=== PATIENT | male | born 1990 ===

== ENCOUNTER 2017-11-18 12:38 | Emergency (ER) | payer BC, OTHER ==
[2017-11-18 13:35] VITALS: RESP 16; O2SAT 98
--- NOTE | 2017-11-18 14:09 | ED PDOC ---
History of Present Illness History of Present Illness: 27 yo male, no PMH, presents to ED with C/o sore throat and cough since yesterday, denies fever. Of note:Pt in ED with his childrenw ho are to be seen for the same HPI: Influenza Time Seen by Provider: 11/18/17 13:26 Chief Complaint: Cough, Cold, Congestion History Per: Patient Past Medical History Reviewed: Nursing Documentation, Vital Signs Vital Signs: Last Vital Signs Temp 97 F L 11/18/17 13:32 Pulse 95 H 11/18/17 13:32 Resp 16 11/18/17 13:32 BP 124/63 11/18/17 13:32 Pulse Ox 98 11/18/17 13:32 - Medical History PMH: No Chronic Diseases - Surgical History Surgical History: No Surg Hx - Family History Family History: States: No Known Family Hx - Living Arrangements Living Arrangements: With Family - Social History Current smoker - smoking cessation education provided: No Alcohol: Social Drugs: Denies - Home Medications Home Medications: Ambulatory Orders Medication Instructions Recorded Ibuprofen [Motrin] 600 mg PO TID PRN #30 tab 05/04/13 Loratadine [Claritin] 10 mg PO DAILY #20 tab 05/04/13 Mometasone Furoate [Nasonex] 2 drop NS DAILY #0 ml 05/04/13 Guaifenesin/Pseudoephedrne HCl 1 tab PO DAILY PRN #30 ter 11/18/17 [Mucinex D 600 mg-60 mg] Promethazine HCl/Codeine 5 ml PO HS #80 ml 11/18/17 [Prometh-Codein 6.25-10 mg/5 ml] - Allergies Allergies/Adverse Reactions: Allergies Allergy/AdvReac Type Severity Reaction Status Date / Time No Known Allergies Allergy Verified 11/18/17 13:32 Review of Systems ROS Statement: Except As Marked, All Systems Reviewed And Found Negative ENT: Positive for: Nose Congestion, Throat Pain Respiratory: Positive for: Cough Physical Exam - Reviewed Nursing Documentation Reviewed: Yes Vital Signs Reviewed: Yes - Physical Exam Appears: Positive for: Well, Non-toxic, No Acute Distress Head Exam: Positive for: ATRAUMATIC, NORMAL INSPECTION, NORMOCEPHALIC Skin: Positive for: Normal Color, Warm, DRY Eye Exam: Positive for: EOMI, Normal appearance, PERRL ENT: Positive for: Normal ENT Inspection. Negative for: Pharyngeal Erythema, Tonsillar Exudate, Tonsillar Swelling Neck: Positive for: Normal, Painless ROM Cardiovascular/Chest: Positive for: Regular Rate, Rhythm Respiratory: Positive for: CNT, Normal Breath Sounds Gastrointestinal/Abdominal: Positive for: Normal Exam, Soft Back: Positive for: Normal Inspection Extremity: Positive for: Normal ROM Neurologic/Psych: Positive for: Alert, Oriented Medical Decision Making Medical Decision Making: Imaging studies not clinically indicated at this time Supportive care methods discussed with Pt who demonstrated full understanding - ECG O2 Sat by Pulse Oximetry: 98 Disposition - Clinical Impression Clinical Impression: Upper respiratory infection - Patient ED Disposition Is Patient to be Admitted: No - Disposition Disposition: Routine/Home Disposition Time: 16:09 Condition: STABLE Prescriptions: Guaifenesin/Pseudoephedrne HCl [Mucinex D 600 mg-60 mg] 1 tab PO DAILY PRN #30 ter PRN Reason: congestion Promethazine HCl/Codeine [Prometh-Codein 6.25-10 mg/5 ml] 5 ml PO HS #80 ml Instructions: Viral Upper Respiratory Infection, Adult (DC) Forms: [employer] ([employer])
[2017-11-18 17:26] VITALS: BP 122/74; PULSE 87; TEMP 97.5
== END 2017-11-18 17:26 | disposition home or self-care (01) ==
LOC: H.ER 12:38
DX: J06.9 Acute upper respiratory infection, unspecified (principal)